=== PATIENT | male | born 1995 | race Caucasian/White ===

== ENCOUNTER 2020-12-13 20:14 | Emergency (ER) | payer OTHER, SELFPAY ==
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
[2020-12-13 20:20] VITALS: BP 140/88; PULSE 127; RESP 22; TEMP 36.8; O2SAT 97; BMI 26.9
[2020-12-13 20:26] VITALS: BP 140/88; PULSE 135; RESP 18; O2SAT 100
[2020-12-13 20:56] VITALS: BP 135/76; PULSE 118; RESP 18; O2SAT 100
[2020-12-13 21:00] LABS: ABG PCO2 33.3 mmHg (35-45); ABG PH Result 7.43 (7.35-7.45); Arterial Blood Gas Hematocrit 48.5 % (42-52); Base Excess ABG -1.6 mmol/L (-2.0-2.0); Blood Gas Allen Test Pos; Blood Gas Sample Site Radial, right; Blood Gas Sample Type Arterial; Carboxyhemoglobin 0.9 %THgb (0.4-20.1); Ionized Calcium Level - ABG 1.2 mmol/L (1.1-1.4); Methemoglobin 0.8 % (0.4-1.5); Oxygen Device NC; Oxygen Saturation ABG 97.7; PO2 ABG 83.4 mmHg (80.0-100.0); Potassium Level - ABG 3.6 mmol/L (3.5-5.0); Total Hemoglobin 15.8 g/dL (14-18)
[2020-12-13 21:26] VITALS: BP 140/88; PULSE 113; RESP 18; O2SAT 99
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
[2020-12-13 21:56] VITALS: PULSE 111; RESP 16; O2SAT 99
[2020-12-13 22:15] VITALS: BP 127/75; PULSE 110; RESP 18; O2SAT 99
== END 2020-12-13 22:16 | disposition home or self-care (01) ==
PROVIDERS: Emergency Provider Emergency Medicine
DX: T59.811A Toxic effect of smoke, accidental (unintentional), initial encounter (principal)
CPT/HCPCS: 36600; 71045; 80051; 82330; 82805; 99283

== ENCOUNTER 2023-02-07 18:46 | Emergency (ER) | payer BC, SELFPAY ==
[2023-02-07 18:50] VITALS: BP 149/93; PULSE 89; RESP 20; TEMP 37; O2SAT 100; BMI 24.5
--- NOTE | 2023-02-07 18:53 | ECG_ITS ---
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 Measurements Intervals [place] Rate: 99 P: 75 OH: 131 QRS: 13 QRSD: 88 T: 43 QT: 321 QTc: 412 Interpretive Statements SINUS RHYTHM No previous ECG available for comparison Electronically Signed On 02-07-2023 20:50:43 CDT by Edson Jerry M.D. [id number]
--- NOTE | 2023-02-07 19:01 | XRR_ITS ---
PROCEDURE INFORMATION: Exam: XR Chest Exam date and time: 02/07/2023 7:05 PM Age: 28 years old Clinical indication: Pain; Chest pressure; Additional info: Cp TECHNIQUE: Imaging protocol: Radiologic exam of the chest. Views: 1 view. COMPARISON: CR XR chest 1V portable [id number] 12/13/2020 8:38 PM FINDINGS: Lungs: Unremarkable. No consolidation. Pleural spaces: Unremarkable. No pleural effusion. No pneumothorax. Heart/Mediastinum: Unremarkable. No cardiomegaly. Bones/joints: Unremarkable. XR/XR chest 1V portable [id number] IMPRESSION: No acute findings.
[2023-02-07 20:49] LABS: Basophils # 0.1 10^3/uL (0.0-0.1); Basophils % 0.9 %; Eosinophils # 0.8 10^3/uL (0.0-0.8); Hematocrit 44.6 % (42.0-52.0); Hemoglobin 15.3 g/dL (11.7-16.6); Lymphocytes # 2.6 10^3/uL (0.8-4.8); Lymphocytes % 23.9 %; Mean Corpuscular HGB Conc 34.3 g/dL (30.0-36.0); Mean Corpuscular Hemoglobin 31.5 pg (28.0-34.0); Mean Platelet Volume 9.4 fL (7.4-10.4); Monocytes # 0.6 10^3/uL (0.2-0.9); Monocytes % 5.3 %; Neutrophils # 6.71 10^3/uL (1.8-7.7); Neutrophils % 62.5 %; Nucleated Red Blood Cells % 0 %; Platelet Count 310 10^3/cmm (130-400); Red Blood Count 4.85 10^6/uL (4.1-5.3); Red Cell Distribution Width 12.3 % (12.1-15.1); White Blood Count 10.7 10^3/uL (4.0-10.0)
--- NOTE | 2023-02-07 21:01 | ECG_ITS ---
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 Measurements Intervals [place] Rate: 65 P: 83 DC: 150 QRS: -8 QRSD: 91 T: 20 QT: 384 QTc: 402 Interpretive Statements SINUS RHYTHM WITH SINUS ARRHYTHMIA Compared to ECG 02/07/2023 18:57:45 No significant changes Electronically Signed On 02-08-2023 6:42:49 CDT by Edson Jerry M.D. [email or web address]/[id number]
[2023-02-07 21:03] LABS: Troponin(5th) Baseline 6 ng/L (0-15)
[2023-02-07 21:11] LABS: Alanine Aminotransferase 19 U/L (0-41); Albumin Level 4.6 g/dL (3.5-5.2); Alkaline Phosphatase 69 U/L (40-130); Anion Gap 12.8 (5-19); Aspartate Amino Transferase 18 U/L (0-40); Blood Urea Nitrogen 15 mg/dL (6-20); Calcium 9.1 mg/dL (8.5-10.5); Carbon Dioxide 26 mmol/L (22-29); Chloride 106 mmol/L (98-107); Globulin 2.4 g/dL (1.3-4.6); Glomerular Filtration Rate 88.3 mL/min (90-130); Glucose 84 mg/dL (65-115); Lipase 16 U/L (13-60); Osmolality Calculated 292 mOsm/kg (285-295); Potassium 3.8 mmol/L (3.5-5.1); Sodium 141 mmol/L (136-145); Total Bilirubin 0.3 mg/dL (0.15-1.2)
--- NOTE | 2023-02-07 21:55 | CTR_ITS ---
PROCEDURE INFORMATION: Exam: CT Neck With Contrast Exam date and time: 02/07/2023 10:08 PM Age: 28 years old Clinical indication: Dysphagia / difficulty swallowing; Patient HX: Patient developed severe dysphagia this evening while eating dinner. Feels like food is stuck in throat. ; Additional info: Dysphagia, possible food bolus TECHNIQUE: Imaging protocol: Computed tomography of the neck with contrast. Radiation optimization: All CT scans at this facility use at least one of these dose optimization techniques: automated exposure control; mA and/or kV adjustment per patient size (includes targeted exams where dose is matched to clinical indication); or iterative reconstruction. Contrast material: OMNI 350; Contrast volume: 50 ml; Contrast route: INTRAVENOUS (IV); REPORTING DATA: Count of CT and Cardiac NM exams in prior 12 months: This patient has received 0 known CTs and 0 known cardiac nuclear medicine studies in the 12 months prior to the current study. COMPARISON: CT chest w con* [id number] 02/07/2023 10:04 PM RADIATION DOSE METRICS: Total DLP (mGy-cm): 204.21 FINDINGS: Pharynx: Unremarkable. No significant tonsillar enlargement. Larynx: Unremarkable. Epiglottis is normal. Prevertebral and retropharyngeal spaces: Unremarkable. Salivary glands: Normal. Glands are normal in size. Thyroid: Normal. No enlarged or calcified nodules. Lymph nodes: Unremarkable. No lymphadenopathy. Trachea: Visualized trachea is unremarkable. Lungs: Unremarkable as visualized. Esophagus: Fluid noted within a mildly dilated mid/proximal esophagus. Bones/joints: Unremarkable. No acute fracture. Soft tissues: Unremarkable. No significant soft tissue swelling. CT/CT neck w con* [id number] IMPRESSION: Partially fluid-filled mildly dilated mid/proximal esophagus suggestive of reflux. Otherwise, no acute findings.
--- NOTE | 2023-02-07 21:55 | CTR_ITS ---
PROCEDURE INFORMATION: Exam: CT Chest With Contrast; Diagnostic Exam date and time: 02/07/2023 10:04 PM Age: 28 years old Clinical indication: Patient HX: Patient developed severe dysphagia this evening while eating dinner. Feels like food is stuck in throat. ; Additional info: Dysphagia, possible food bolus TECHNIQUE: Imaging protocol: Diagnostic computed tomography of the chest with contrast. Radiation optimization: All CT scans at this facility use at least one of these dose optimization techniques: automated exposure control; mA and/or kV adjustment per patient size (includes targeted exams where dose is matched to clinical indication); or iterative reconstruction. Contrast material: OMNI 350; Contrast volume: 50 ml; Contrast route: INTRAVENOUS (IV); REPORTING DATA: Count of CT and Cardiac NM exams in prior 12 months: This patient has received 0 known CTs and 0 known cardiac nuclear medicine studies in the 12 months prior to the current study. COMPARISON: CR (CHEST, ) 02/07/2023 7:05 PM RADIATION DOSE METRICS: Total DLP (mGy-cm): 435.8 FINDINGS: Lungs: Lungs are clear. Pleural spaces: Unremarkable. No pneumothorax. No pleural effusion. Heart: Heart is within normal limits of size. Mediastinal space: There is fluid and debris within the esophagus with material in the distal esophagus near the esophagogastric junction which could represent an impacted food bolus as questioned in the history. Lymph nodes: There is no evidence of lymphadenopathy. Vasculature: There is no thoracic aortic aneurysm or dissection. Bones/joints: There is moderate pectus deformity of the sternum Soft tissues: There is mild nonspecific gynecomastia. CT/CT chest w con* [id number] IMPRESSION: 1. Possible impacted food bolus within the distal esophagus. 2. Pectus excavatum
--- NOTE | 2023-02-07 21:57 | ED_ITS ---
HPI - Chest Pain General: Chief Complaint: Chest Pain Stated Complaint: chest pain, difficulty swallowing Time Seen by Provider: 02/07/23 20:17 History of Present Illness: Several hours ago while patient was eating dinner he swallowed something and thinks it got stuck in his throat. Patient said he is unable to vomit and unable to swallow any of his secretions. Patient said he has never had anything like this happen to him before MD complaint: chest pain ( esophageal pain and dysphagia) Onset (ago): hour(s) (A couple hours ago) Timing of current episode: constant Prior episodes: No Onset: after eating (During eating) Pain location: substernal Pain radiation: none Severity: moderate Quality: tightness and aching Relieving factors: nothing Exacerbating factors: eating (Trying to eat or drink anything makes it worse) Associated symptoms: Deny abdominal pain, dyspnea, fever(s), nausea, palpitations or vomiting Review of Systems General: Reports: 10 or more systems reviewed and unremarkable except in HPI and below Const: Denies: fever(s) or chills Eyes: Denies: change in vision or photophobia ENMT: Reports: throat pain and odynophagia Card: Reports: chest pain; Denies: palpitations or irregular heart rhythm Resp: Denies: dyspnea, productive cough or non-productive cough GI: Denies: abdominal pain, nausea, vomiting or hematemesis : Denies: flank pain or dysuria Physical Exam Narrative: EXAM NARRATIVE: Patient is drooling into an emesis bag Const: COMMON NORMALS: patient oriented x3, no limitations, healthy appearing, alert and well nourished HENMT: COMMON NORMALS: normocephalic, atraumatic, hearing grossly normal bilaterally, external ears normal, Normal external nose present and moist oral mucous membranes HEAD & SCALP: normocephalic and atraumatic NOSE: Normal external nose present EXTERNAL EAR: Yes external ears normal Eye: COMMON NORMALS: Equal, round and reactive pupils present, EOMs intact bilaterally, conjunctivae normal and no scleral icterus CONJUNCTIVA: Yes conjunctivae normal PUPIL: Yes Equal, round and reactive pupils present Neck/C-Spine: COMMON NORMALS: full ROM, no lymphadenopathy, supple, no meningeal signs, no JVD and Thyroid normal THYROID: Thyroid normal Lymph: LYMPHATIC: no lymphadenopathy noted and no lymphedema noted Chest: COMMONS NORMALS: normal inspection of the chest and normal palpation of entire chest wall Resp: COMMON NORMALS: normal respiratory effort, No retractions, No use of accessory muscles and clear to auscultation bilaterally AUSCULTATION: clear to auscultation bilaterally Cardio: COMMON NORMALS: no JVD, regular rate, regular rhythm, S1 normal heart sound present, No gallops present (Cardio), No clicks present (Cardio) and No murmurs present (Cardio) RATE: regular rate RHYTHM: regular rhythm HEART SOUNDS: S1 normal heart sound present GI: COMMON NORMALS: Normal to inspection, nondistended, normoactive bowel sounds present, Soft to palpation, non-tender, No hepatosplenomegaly present and no masses PALPATION: Yes Soft to palpation and Yes No hepatosplenomegaly present : COMMON NORMALS: Yes no CVA tenderness BLADDER/KIDNEY EXAM: Yes no CVA tenderness Back/Pelvis: COMMON NORMALS: no CVA tenderness Neuro: COMMON NORMALS: patient oriented x3 SENSORIUM/ORIENTATION: Yes alert MENINGEAL SIGNS: Yes no meningeal signs Course Vital Signs: Vital signs: Vital Signs Temperature 98.6 F 02/07/23 18:50 Pulse Rate 89 02/07/23 18:50 Respiratory Rate 20 H 02/07/23 18:50 Blood Pressure 149/93 02/07/23 18:50 Pulse Oximetry 100 02/07/23 18:50 Oxygen Delivery Me thod Room Air 02/07/23 18:50 MDM - Chest Pain Medical Decision Making Patient was eating steak this afternoon and he thinks he has a piece tongue in his esophagus. He is unable to handle his own secretions now he has tried to vomit with no success he is try to drink and push it further on down with no success. Patient was given 1 mg of glucagon IV in ER with no success. Chest pain lab work and chest x-ray was obtained which is negative. Chest CT and neck CT was obtained which showed possible impacted food bolus within the distal esophagus. Approximately 15 minutes after the patient was given the glucagon he said he felt like things could move but have not yet. Patient was given approximately 4 ounces of water and he he golfed it as fast as possible and he felt instantaneous relief as the food bolus pushed on into his stomach. Patient directed other 4 ounces of water as normal. Patient will be discharged home and should follow-up with his family practice doctor as needed. Differential Diagnosis Unlikely acute massive pulmonary embolism, acute respiratory failure, acute myocardial infarction, cardiac arrest or sudden cardiac Medical Records I reviewed the patient's medical records. Lab Data I reviewed the patient's lab results. 02/07/23 20:14 02/07/23 20:14 Radiology Impressions Chest X-Ray 02/07/23 19:01 IMPRESSION: No acute findings. Chest CT 02/07/23 21:55 IMPRESSION: 1. Possible impacted food bolus within the distal esophagus. 2. Pectus excavatum Neck CT 02/07/23 21:55 IMPRESSION: Partially fluid-filled mildly dilated mid/proximal esophagus suggestive of reflux. Otherwise, no acute findings. Laboratory Results WBC 10.7 10^3/uL (4.0-10.0) H 02/07/23 20:14 RBC 4.85 10^6/uL (4.1-5.3) 02/07/23 20:14 Hgb 15.3 g/dL (11.7-16.6) 02/07/23 20:14 Hct 44.6 % (42.0-52.0) 02/07/23 20:14 MCV 92.0 fl (80-94) 02/07/23 20:14 MCH 31.5 pg (28.0-34.0) 02/07/23 20:14 MCHC 34.3 g/dL (30.0-36.0) 02/07/23 20:14 RDW 12.3 % (12.1-15.1) 02/07/23 20:14 Plt Count 310 10^3/cmm (130-400) 02/07/23 20:14 MPV 9.4 fL (7.4-10.4) 02/07/23 20:14 Neut % (Auto) 62.5 % 02/07/23 20:14 Lymph % (Auto) 23.9 % 02/07/23 20:14 Thayer % (Auto) 5.3 % 02/07/23 20:14 Eos % (Auto) 7.0 % 02/07/23 20:14 Baso % (Auto) 0.9 % 02/07/23 20:14 Neut # (Auto) 6.71 10^3/uL (1.8-7.7) 02/07/23 20:14 Lymph # (Auto) 2.6 10^3/uL (0.8-4.8) 02/07/23 20:14 Thayer # (Auto) 0.6 10^3/uL (0.2-0.9) 02/07/23 20:14 Eos # (Auto) 0.8 10^3/uL (0.0-0.8) 02/07/23 20:14 Baso # (Auto) 0.1 10^3/uL (0.0-0.1) 02/07/23 20:14 Nucleated RBC % (auto) 0 % 02/07/23 20:14 Nucleated RBCs # 0.0 /100WBC 02/07/23 20:14 Sodium 141 mmol/L (136-145) 02/07/23 20:14 Potassium 3.8 mmol/L (3.5-5.1) 02/07/23 20:14 Chloride 106 mmol/L (98-107) 02/07/23 20:14 Carbon Dioxide 26 mmol/L (22-29) 02/07/23 20:14 Anion Gap 12.8 (5-19) 02/07/23 20:14 BUN 15 mg/dL (6-20) 02/07/23 20:14 Creatinine 1.0 mg/dL (0.7-1.2) 02/07/23 20:14 GFR Calculation 88.3 mL/min (90-130) L 02/07/23 20:14 Glucose 84 mg/dL (65-115) 02/07/23 20:14 Calculated Osmolality 292 mOsm/kg (285-295) 02/07/23 20:14 Calcium 9.1 mg/dL (8.5-10.5) 02/07/23 20:14 Total Bilirubin 0.3 mg/dL (0.15-1.2) 02/07/23 20:14 AST 18 U/L (0-40) 02/07/23 20:14 ALT 19 U/L (0-41) 02/07/23 20:14 Alkaline Phosphatase 69 U/L (40-130) 02/07/23 20:14 Troponin T Baseline 6 ng/L (0-15) 02/07/23 20:14 Troponin T 120 Minute 6.00 ng/L (0-15) 02/07/23 21:55 Delta Troponin T 0 ABS# (0-10) 02/07/23 21:55 Total Protein 7.0 g/dL (6.6-8.7) 02/07/23 20:14 Albumin 4.6 g/dL (3.5-5.2) 02/07/23 20:14 Globulin 2.4 g/dL (1.3-4.6) 02/07/23 20:14 Lipase 16 U/L (13-60) 02/07/23 20:14 EKG Data EKG 1: I personally reviewed and interpreted this EKG as follows: EKG interpretation date: 02/07/23 EKG interpretation time: 18:53 Prior EKG tracings: not available for review Interpretation: EKG showed ventricular rate of 99 bpm, MT interval 131, QRS 88 QTc of 412, normal sinus rhythm. No ST-T wave changes EKG 2: I personally reviewed and interpreted this EKG as follows: EKG interpretation date: 02/07/23 EKG interpretation time: 21:38 Prior EKG tracings: available for review Interpretation: EKG shows a ventricular rate of 65 bpm, MT interval 150, QRS duration 91, QTc of 396, sinus rhythm with sinus arrhythmia, no ST-T wave changes Discharge Plan Discharge Patient Disposition: Home Clinical Impression: Esophageal obstruction due to food impaction Condition: Stable Prescriptions: No Action Medrol (Héctor) 4 mg tablets,dose pack See Rx Instructions .ROUTE .COMPLEX Qty: 21 0RF Rx Instructions: orally per package directions Discharge Orders: Discharge ED (Routine); Ordered 02/07/23 Ordered By: Bryant Gao Patient Instructions: Food Impaction (ED) Activity Restrictions/Additional Instructions: Your esophageal food bolus has resolved in the ER. Please follow-up with your PCP on an as-needed basis. Coding Level of Care Code ED Marketing Operations Consultant for Marilu Duran
[2023-02-07] MEDS: iohexol 350 mg/mL 500 mL Btl (per mL) IV (22:12)
[2023-02-07 22:30] VITALS: BP 135/91; PULSE 65; O2SAT 100
[2023-02-07 22:31] LABS: Troponin 5 2HR Delta 0 ABS# (0-10)
[2023-02-07] MEDS: glucagon 1 mg/mL KIT 1 mL IV (22:40)
[2023-02-07 23:00] VITALS: BP 132/73; PULSE 69; RESP 18; O2SAT 100
--- NOTE | 2023-02-17 10:02 | DCPLANNER ---
TCM called patient due to no primary care physician - no answer at this time.
== END 2023-02-07 23:31 | disposition home or self-care (01) ==
PROVIDERS: Emergency Medicine; Emergency Provider Emergency Medicine
DX: T18.128A Food in esophagus causing other injury, initial encounter (principal); X58.XXXA Exposure to other specified factors, initial encounter
CPT/HCPCS: 36415; 70491; 71045; 71260; 80053; 83690; 84484; 85025; 93005; 99285; J1610; Q9967